=== PATIENT | female | born 1960 | race Caucasian/White ===

== ENCOUNTER 2017-09-24 20:22 | Emergency (ER) | payer OTHER ==
[~2017-09-24] VITALS: Ht 162.6 cm; Wt 61.8 kg
[2017-09-24 20:29] VITALS: Ht 162.6 cm; Wt 61.8 kg
[2017-09-24] MEDS ORDERED: BYSTOLIC2.5 MG PO (20:30)
[2017-09-24 21:26] LABS: BASOPHILS 0.4 % (0-2); EOSINOPHILS 0.8 % (0-7); HEMATOCRIT 43.5 % (36.0-48.0); IMMATURE GRANULOCYTES 0.4 % (0-5); LYMPHOCYTES 25.8 % (15-50); MCH 33.2 pg (26.0-34.0); MCHC 34.5 g/dL (31.0-37.0); MCV 96.2 fL (80.0-100.0); MEAN PLATELET VOLUME 10.6 fL (7.4-10.4); MONOCYTES 10.5 % (2-11); NEUTROPHILS 62.1 % (40-80); PLATELET COUNT 151 10x3/uL (130-400); RBC 4.52 10x6/uL (4.00-5.40); RDW 12.5 % (11.5-14.5); WBC 5.3 10x3/uL (4.8-10.8)
[2017-09-24 21:34] LABS: APTT 21.7 SECONDS (22.8-39.4); INR 0.85 (0.85-1.17); PROTIME 11.3 SECONDS (11.6-15.0)
[2017-09-24 21:40] LABS: ALBUMIN 4.3 g/dL (3.4-5.0); ALKALINE PHOSPHATASE 74 U/L (46-116); ALT (SGPT) 54 U/L (10-68); BILIRUBIN - TOTAL 0.29 mg/dL (0.2-1.3); CALC OSMOLALITY 277 mosm/kg (275-300); CARBON DIOXIDE 28.3 mmol/L (21.0-32.0); CHLORIDE - SERUM 104 mmol/L (98-107); CREATININE - SERUM 0.7 mg/dL (0.6-1.3); GLUCOSE 105 mg/dL (74-106); POTASSIUM - SERUM 3.7 mmol/L (3.5-5.1); PROTEIN - SERUM 8.1 g/dL (6.4-8.2); SODIUM 140 mmol/L (136-145); UREA NITROGEN 11 mg/dL (7-18); eGFR NON AFRICAN AMERICAN > 90 mL/min (90-120)
[2017-09-24 21:51] LABS: CKMB 0.9 U/L (0.0-3.6); CREATINE KINASE 76 UL (21-215); PRO BNP 63 pg/mL (0-125)
[2017-09-24 21:52] LABS: TROPONIN-I < 0.017 ng/mL (0.000-0.060)
[2017-09-25 01:20] VITALS: BP 118/77
== END 2017-09-25 02:09 | disposition home or self-care (01) ==
LOC: D.ER 20:22
PROVIDERS: Family Medicine
DX: G43.909 Migraine, unspecified, not intractable, without status migrainosus (principal); I10 Essential (primary) hypertension

== ENCOUNTER → 2017-09-28 18:33 | Outpatient (CLI) | payer OTHER ==
[2017-09-24 20:29] VITALS: BMI 23.4
[~2017-09-28 18:33] MED LIST: BYSTOLIC2.5 MG PO
[2017-09-28 21:36] LABS: ERYTHROCYTE SEDIMENTATION RATE 6 mm/hr (0-30)
[2017-09-30 22:12] LABS: ANA REFLEX - DIRECT Negative (Negative)
[2017-10-03 16:08] LABS: F. TULARENSIS - IGG See below: (()); F. TULARENSIS - IGM Negative (())
[2017-10-04 16:10] LABS: A. PHAGOCYTOPHILIUM PCR Negative (Negative)
[2017-10-05 16:11] LABS: HIV-2 AB-O.D. RATIO Negative (Neg:<1.00)
[2017-10-06 15:19] LABS: EHRLICHIA CHAFF IGG Negative (Neg:<1:64); EHRLICHIA CHAFF IGM 1:40 (Neg:<1:20); HGE IGG TITER Negative (Neg:<1:64); HGE IGM TITER Negative (Neg:<1:20)
[2017-10-07 03:08] LABS: RMSF IGM 0.22 index (0.00-0.89)
== END | disposition home or self-care (01) ==
LOC: D.LABREF 18:33
PROVIDERS: Student in an Organized Health Care Education/Training Program
DX: R50.9 Fever, unspecified (principal)

== ENCOUNTER → 2017-11-10 18:33 | Outpatient (CLI) | payer SELFPAY ==
[2017-09-24 20:29] VITALS: BMI 23.4
[2017-11-14 14:18] LABS: EHRLICHIA CHAFF IGG Negative (Neg:<1:64); EHRLICHIA CHAFF IGM Negative (Neg:<1:20); HGE IGG TITER Negative (Neg:<1:64); HGE IGM TITER Negative (Neg:<1:20)
[2017-11-18 10:22] LABS: F. TULARENSIS - IGG Negative (()); F. TULARENSIS - IGM Negative (())
== END | disposition home or self-care (01) ==
LOC: D.LABREF 18:33
PROVIDERS: Student in an Organized Health Care Education/Training Program
DX: A21.9 Tularemia, unspecified (principal)

== ENCOUNTER → 2018-02-02 13:04 | Outpatient (CLI) | payer SELFPAY ==
[2017-09-24 20:29] VITALS: BMI 23.4
== END | disposition home or self-care (01) ==
LOC: D.CT 13:04
DX: R07.89 Other chest pain (principal); R10.9 Unspecified abdominal pain

== ENCOUNTER → 2018-06-08 11:20 | Outpatient (CLI) | payer SELFPAY ==
[2017-09-24 20:29] VITALS: BMI 23.4
[2018-06-08 12:12] LABS: INR 0.94 (0.85-1.17)
[2018-06-08 12:19] LABS: ALBUMIN 3.9 g/dL (3.4-5.0); BILIRUBIN - DIRECT 0.09 mg/dL (0.00-0.30); BILIRUBIN - INDIRECT 0.3 mg/dL (0.00-1.00); BILIRUBIN - TOTAL 0.39 mg/dL (0.2-1.3); PROTEIN - SERUM 7.6 g/dL (6.4-8.2)
== END | disposition home or self-care (01) ==
LOC: D.LAB 11:20
PROVIDERS: ATTEND Internal Medicine Gastroenterology
DX: R10.9 Unspecified abdominal pain (principal)

== ENCOUNTER → 2018-08-02 10:30 | Outpatient (CLI) | payer OTHER ==
[2017-09-24 20:29] VITALS: BMI 23.4
--- NOTE | ~2018-08-02 | EC ---
PATIENT:SANDI CARR DATE OF SERVICE: 08/02/18 SEX: F MEDICAL RECORD: [id number] DATE OF : 60 [facility] AGE [facility] PAT[facility]: 57 ADMISSION DATE: 08/02/18 REFERRING PHYSICIAN: INTERPRETING PHYSICIAN: OSMIN GODWIN MD ECHOCARDIOGRAM REPORT ECHO CHARGES 4 ECHO COMPLETE Date: 08/02/18 CLINICAL DIAGNOSIS: PALPITATIONS/CP/STRAUSS/SOB ECHOCARDIOGRAPHIC MEASUREMENTS (adult normal given) AC root (d.<3.7cm) 3.0 cm LV Septum d (<1.2 cm> 1.0 cm Valve Excursion 1.7 cm LV Septum (systole) 1.4 cm Left Atria (s.<4.0cm> 2.9 cm LVPW d(<1.2cm) 1.1 cm RV (d.<2.3cm) 2.2 cm LVPW (sytole) 1.7 cm LV diastole(<5.6CM) 5.2 cm MV E-F(>70mm/sec) cm LV systole 3.3 cm LVOT Diameter 1.9 cm MV exc.(>10mm) cm Est.ejection fraction (50-75%) % DOPPLER: LVIT cm/sec A 54.0 cm/sec E 104 cm/sec LA cm/sec RVSP 30.2 mmHg LVOT 90.0 cm/sec AOP1/2T m/s Asc. Ao 133 cm/sec RVOT 60.0 cm/sec RA cm/sec PA 85.0 cm/sec AV Gradient Peak 7.1 mmHg AV Mean 3.5 mmHg AV Area 1.7 cm MV Gradient Peak 4.6 mmHg MV Mean 1.1 mmHg MV Area cm COMMENTS: OP - HC Tie Binder: Pete HANNAH [place] [employer] Cutting Machine Operator: 1 Dr. Godwin TAPE# PACS Pericardial Effusion N DATE OF SERVICE: 08/02/2018 PROCEDURE: Echocardiogram. FINDINGS: 1. Left ventricular chamber size is within normal limits. Left ventricular systolic function is normal. Overall ejection fraction estimated at 55%. 2. Left atrium, right atrium, and right ventricle chamber sizes are within normal limits. 3. Valvular structures have normal structure and motion. ECHOCARDIOGRAM REPORT [id number] SANDI CARR 4. Doppler interrogation reveals [id number] mitral regurgitation, mild to moderate tricuspid regurgitation, no other valvular insufficiency or stenosis. Pulmonary systolic pressure is estimated at 30 mmHg. 5. No evidence of pericardial effusion or left ventricular thrombus. TRANSINT:[id number] Voice Confirmation ID: [id number] DOCUMENT ID: [id number] OSMIN GODWIN MD CC: [id number] DICTATION DATE: 08/07/18 1034 HOME HEALTH CNA: 08/07/18 1137 DEP CLI 08/02/18 [facility] [address] [id number]
== END | disposition home or self-care (01) ==
LOC: D.HCCARDIO 10:30
PROVIDERS: ATTEND Internal Medicine Cardiovascular Disease
DX: R00.2 Palpitations (principal)

== ENCOUNTER → 2019-07-25 14:33 | Outpatient (CLI) | payer OTHER ==
[2017-09-24 20:29] VITALS: BMI 23.4
[2019-07-25 15:50] LABS: THYROID STIMULATING HORMONE 3.36 uIU/mL (0.36-3.74)
== END | disposition home or self-care (01) ==
LOC: D.LAB 14:33
PROVIDERS: ATTEND Internal Medicine Gastroenterology
DX: R19.7 Diarrhea, unspecified (principal)

== ENCOUNTER → 2019-08-07 12:17 | Outpatient (CLI) | payer OTHER ==
[2017-09-24 20:29] VITALS: BMI 23.4
== END | disposition home or self-care (01) ==
LOC: D.LABREF 12:17
PROVIDERS: ATTEND Internal Medicine Gastroenterology
DX: R19.7 Diarrhea, unspecified (principal)

== ENCOUNTER → 2019-08-08 10:41 | Outpatient (CLI) | payer OTHER ==
[2017-09-24 20:29] VITALS: BMI 23.4
[2019-08-08 11:32] LABS: GLUCOSE NEGATIVE (NEGATIVE); KETONE NEGATIVE (NEGATIVE); NITRITE NEGATIVE (NEGATIVE); UROBILINOGEN NORMAL (NORMAL)
[2019-08-08 11:33] LABS: BILIRUBIN NEGATIVE (NEGATIVE)
== END | disposition home or self-care (01) ==
LOC: D.LAB 10:41
PROVIDERS: ATTEND Internal Medicine Gastroenterology
DX: R30.0 Dysuria (principal)